=== PATIENT | female | born 1995 | race Caucasian/White ===

== ENCOUNTER → 2016-09-19 | Outpatient (CLI) | payer MEDICAID ==
[~2016-09-19] MED LIST: ACYCLOVIR800 MG PO; AMOXICILLIN500 M2 PO; BUSPAR 10MG TAB10 MG PO; DOXEPIN10 MG PO; FLAGYL500 MG PO; IMIPRAMINE HCL25 MG OR; MONTELUKAST SOD10 MG PO; MOTRIN400 MG PO; NOMEDS XX; PANTOPRAZOLE SO40 MG PO; PREDNISONE 20MG20 MG PO; PROZAC 20MG CAP20 MG PO; SINGULAIR10 MG PO; TESSALON PERLE100 MG PO; TYLENOL W/CODEI1 TA3 PO; ZITHROMAX Z PA250 MG PO; ZOFRAN ODT4 MG PO; ZOFRAN4 MG/5 ML PO
--- NOTE | 2016-09-19 17:02 | RADIOLOGY REPORT PS360 ---
US TRANSVAGINAL PREG INDICATION: OB US FOR DATES TECHNIQUE: ultrasound transabdominal scanning/ MW COMPARISON: No previous relevant studies FINDINGS Single viable intrauterine gestation. Variable position. The cervix appears adequately measuring roughly 3.6cm length Anterior placenta Limited survey performed and was unremarkable on the submitted images as in PACS.No discrete anomalies identified on survey imaging by technologist Active fetus. Limited images show normal contour head. Only a single axial view of the head submitted along with coronal view. Current limited views of the heart and abdomen grossly unremarkable but are quite limited but this early point in gestation. measurements:. Average ultrasound age 13 week 2 day. Gestational age 14 week 3 day. The mean sac size 5.5 cm = 11 weeks 4 days. CRL = 5.96 = 12 week 4 day. Heart rate = 151 BPM. . BPD = 2.48 = 14 week 2 day .OFD = 3.02 .HC = 8.7 = 13 week 6 day .AC = 7.26 cm = 13 week 6 day Heart rate = 151 BPM Right ovary not clearly identified Left ovary: 2.7X 3.3 x 1.5 cm No fluid in cul-de-sac IMPRESSION: Single viable intrauterine gestation in variable position 13 week 2 dayaverage ultrasound age with today's measurements Anterior placenta. Active fetus. Unremarkable limited survey at this point in gestation
== END ==
LOC: RAD 15:10
DX: O26.841 Uterine size-date discrepancy, first trimester (principal)

== ENCOUNTER → 2016-11-11 | Outpatient (CLI) | payer MEDICAID ==
--- NOTE | 2016-11-11 17:39 | RADIOLOGY REPORT PS360 ---
US PREG COMP: INDICATION: 20 week evaluation, anatomy scan ANATOMY SCAN ORDERING PHYSICIAN: Fidencio Woods MD PATIENT AGE: 21 years TECHNIQUE: ultrasound transabdominal scanning. COMPARISON: No previous relevant studies. FINDINGS: Single viable intrauterine gestation. Breech position. Placenta: Anterior placenta grade 1. There is average amount fluid. The cervix appears satisfactory. Closed and measuring 3 cm in length. Complete survey performed and was unremarkable on the submitted images as in PACS. No discrete anomalies identified on survey imaging by technologist. Active fetus. Three-vessel cord with satisfactory umbilical cord insertion. 4- chamber heart noted. Survey of brain & ventricles. Face and neck survey unremarkable. Diaphragm and chest views unremarkable. Abdomen: Both kidneys noted and unremarkable. Stomach noted and satisfactory. Spine: Survey of the spine satisfactory with no anomalies identified nor imaged. Both arms and legs noted. Amniotic Fluid: Adequate. Maternal adnexa: No significant findings. Measurements: Average ultrasound age 21 weeks 5 days. Gestational Age 21 weeks 0 days. Estimated due date by ultrasound age 103/19/2017. Estimated weight 447 grams. BPD = 21 weeks 5 days OFD = 21 weeks 6 days HC = 21 weeks 0 days AC = 21 weeks 6 days FL = 22 weeks 0 days Heart Rate = 150 BPM Cerebellum = 22 weeks 5 days Humerus = 22 weeks 5 days HC/AC is 1.11. CI is 78%. FL/BPD is 73%. FL/AC is 22%. IMPRESSION: There is a single live fetus which is in breech presentation with average ultrasound age of 21 weeks 5 days. No obvious anomalies. Placenta is anterior and grade 1 with average amount of amniotic fluid. Please see above for details.
== END ==
LOC: RAD 14:53
DX: Z36 Encounter for antenatal screening of mother (principal)

== ENCOUNTER → 2016-11-24 | Outpatient (CLI) | payer MEDICAID | LOC: LAB 17:54 | DX: N39.0 Urinary tract infection, site not specified (principal) ==